=== PATIENT | male | born 1950 ===

== ENCOUNTER 2020-05-27 06:48 | Inpatient (IN) | payer OTHER ==
[~2020-05-27] VITALS: Ht 167.6 cm; Wt 72.6 kg
[2020-05-27] MEDS ORDERED: PLAVIX75 MG (07:21)
[2020-05-31] MEDS ORDERED: BUSPIRONE HCL10 MG (16:30)
[2020-05-31] MEDS ORDERED: CARVEDILOL3.125 M1 (16:30)
[2020-05-31] MEDS ORDERED: BREO ELLIPTA I1 EACH (16:30)
[2020-05-31] MEDS ORDERED: ATORVASTATIN CA10 MG (16:30)
[2020-05-31] MEDS ORDERED: FUROSEMIDE40 MG (16:30)
[2020-05-31] MEDS ORDERED: SPIRONOLACTONE25 MG (16:31)
== END 2020-06-24 20:38 | disposition expired | DRG 811 ==
LOC: ER 06:48 → ICU-2 18:35 → ICU 05-29 19:41 → MEDI 06-02 14:32 → ICU 06-09 17:41
PROVIDERS: ADMIT Internal Medicine; ATTEND Internal Medicine
PROC: 30233R1 Transfusion of Nonautologous Platelets into Peripheral Vein, Percutaneous Approach (ICD-10-PCS; principal; 2020-05-27)
PROC: B24BZZZ Ultrasonography of Heart with Aorta (ICD-10-PCS; 2020-05-27)
PROC: 02H633Z Insertion of Infusion Device into Right Atrium, Percutaneous Approach (ICD-10-PCS; 2020-05-31)
PROC: 4A12X4Z Monitoring of Cardiac Electrical Activity, External Approach (ICD-10-PCS; 2020-06-02)
PROC: 0BH17EZ Insertion of Endotracheal Airway into Trachea, Via Natural or Artificial Opening (ICD-10-PCS; 2020-06-09)
PROC: 5A1955Z Respiratory Ventilation, Greater than 96 Consecutive Hours (ICD-10-PCS; 2020-06-09)
PROC: 4A033R1 Measurement of Arterial Saturation, Peripheral, Percutaneous Approach (ICD-10-PCS; 2020-06-22)
DX: D62 Acute posthemorrhagic anemia (principal); I21.A1 Myocardial infarction type 2; J69.0 Pneumonitis due to inhalation of food and vomit; A41.9 Sepsis, unspecified organism; R65.21 Severe sepsis with septic shock; J96.00 Acute respiratory failure, unspecified whether with hypoxia or hypercapnia; K92.1 Melena; F10.231 Alcohol dependence with withdrawal delirium; N39.0 Urinary tract infection, site not specified; N17.8 Other acute kidney failure; E87.2 Acidosis; G93.1 Anoxic brain damage, not elsewhere classified; Z20.828 Contact with and (suspected) exposure to other viral communicable diseases; E78.5 Hyperlipidemia, unspecified; F41.8 Other specified anxiety disorders; J43.8 Other emphysema; B95.2 Enterococcus as the cause of diseases classified elsewhere; Z79.01 Long term (current) use of anticoagulants; E86.0 Dehydration; Z66 Do not resuscitate